=== PATIENT | female | born 1985 | race Hispanic/Latino ===

== ENCOUNTER 2016-10-09 06:17 | Emergency (ER) | payer OTHER ==
[2016-10-09 06:22] VITALS: BMI 38.9
[2016-10-09 06:29] VITALS: BP 97/71; PULSE 78; RESP 16; TEMP 98.2; O2SAT 98
[2016-10-09] MEDS ORDERED: Lidocaine 1%/Epinephrine 1:100000 30 ml vial IJ ONE (07:05)
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
[2016-10-09] MEDS ORDERED: TDAP Vaccine 0.5 mL Syr IM ONE (07:10)
== END 2016-10-09 07:59 | disposition home or self-care (01) ==
LOC: ED 06:17
DX: S01.81XA Laceration without foreign body of other part of head, initial encounter (principal); Y04.2XXA Assault by strike against or bumped into by another person, initial encounter